=== PATIENT | male | born 1975 | race Caucasian/White ===

== ENCOUNTER 2022-08-01 09:02 | Emergency (ER) | payer OTHER ==
[~2022-08-01] VITALS: Ht 167.6 cm; Wt 102.0 kg
[~2022-08-01 09:02] MED LIST: LOSA-381 PO
[2022-08-01] MEDS ORDERED: ATOR40TA71 PO (09:08)
[2022-08-01] MEDS ORDERED: APIX5TAB PO (09:08)
[2022-08-01] MEDS ORDERED: FURO40TA5 PO (09:08)
[2022-08-01] MEDS ORDERED: SPIR-37 PO (09:08)
[2022-08-01] MEDS ORDERED: CARV6.2534 PO (09:08)
[2022-08-01] MEDS ORDERED: SACU1TAB7 PO (09:08)
[2022-08-01] MEDS ORDERED: EMPA10TA3 PO (09:08)
[2022-08-01] MEDS ORDERED: ACETAMINOPHEN/CODEINE 300-30 MG TABLET PO ONE (09:45)
[2022-08-01 11:19] VITALS: BP 110/66
[2022-08-01] MEDS ORDERED: PERCT PO (12:47)
[2022-08-02] MEDS ORDERED: HYDR-4072 PO (08:17)
== END 2022-08-01 13:07 | disposition home or self-care (01) ==
LOC: EMS 09:07
DX: S83.91XA Sprain of unspecified site of right knee, initial encounter (principal); I48.91 Unspecified atrial fibrillation; I63.9 Cerebral infarction, unspecified; E11.9 Type 2 diabetes mellitus without complications; E78.00 Pure hypercholesterolemia, unspecified; I10 Essential (primary) hypertension; Z95.0 Presence of cardiac pacemaker; X58.XXXA Exposure to other specified factors, initial encounter; Y93.89 Activity, other specified; Y92.89 Other specified places as the place of occurrence of the external cause; Y99.8 Other external cause status
CPT/HCPCS: 29530; 82962; 99283